=== PATIENT | male | born 1960 | race Two or more races ===

== ENCOUNTER 2019-01-14 13:17 | Outpatient (RCR) | payer MEDICARE, BC | END 2019-01-30 | disposition home or self-care (01) | LOC: WCC 13:17 | DX: T86.828 Other complications of skin graft (allograft) (autograft) (principal); S81.002A Unspecified open wound, left knee, initial encounter; T81.31XA Disruption of external operation (surgical) wound, not elsewhere classified, initial encounter; X58.XXXA Exposure to other specified factors, initial encounter; Y92.9 Unspecified place or not applicable; Z96.652 Presence of left artificial knee joint; N18.6 End stage renal disease; Z99.2 Dependence on renal dialysis; K74.60 Unspecified cirrhosis of liver; Z79.899 Other long term (current) drug therapy | CPT/HCPCS: G0277; G0463 ==

== ENCOUNTER 2019-02-09 13:00 | Outpatient (RCR) | payer MEDICARE, BC | END 2019-03-01 | disposition home or self-care (01) | LOC: WCC 13:00 | DX: T86.828 Other complications of skin graft (allograft) (autograft) (principal); L02.416 Cutaneous abscess of left lower limb; Z96.652 Presence of left artificial knee joint; N18.6 End stage renal disease; K74.60 Unspecified cirrhosis of liver; L97.823 Non-pressure chronic ulcer of other part of left lower leg with necrosis of muscle; Z79.899 Other long term (current) drug therapy | CPT/HCPCS: 10060; 11043; 87070; 87205; G0277 ==

== ENCOUNTER 2019-03-02 08:09 | Outpatient (RCR) | payer MEDICARE, BC | END 2019-04-01 | disposition home or self-care (01) | LOC: WCC 08:09 | DX: T86.828 Other complications of skin graft (allograft) (autograft) (principal); L97.823 Non-pressure chronic ulcer of other part of left lower leg with necrosis of muscle; L02.416 Cutaneous abscess of left lower limb; K74.60 Unspecified cirrhosis of liver; Z96.652 Presence of left artificial knee joint; N18.6 End stage renal disease; Z79.899 Other long term (current) drug therapy | CPT/HCPCS: G0277; G0463 ==

== ENCOUNTER 2019-04-02 08:07 | Outpatient (RCR) | payer MEDICARE, BC | END 2019-05-02 | disposition home or self-care (01) | LOC: WCC 08:07 | DX: T86.828 Other complications of skin graft (allograft) (autograft) (principal); L97.823 Non-pressure chronic ulcer of other part of left lower leg with necrosis of muscle; L02.416 Cutaneous abscess of left lower limb; N18.6 End stage renal disease; Z96.652 Presence of left artificial knee joint; K74.60 Unspecified cirrhosis of liver; Z79.899 Other long term (current) drug therapy | CPT/HCPCS: G0277; G0463 ==

== ENCOUNTER 2019-05-05 08:09 | Outpatient (RCR) | payer MEDICARE, BC | END 2019-06-01 | disposition home or self-care (01) | LOC: WCC 08:09 | DX: T86.828 Other complications of skin graft (allograft) (autograft) (principal); L97.823 Non-pressure chronic ulcer of other part of left lower leg with necrosis of muscle; L02.416 Cutaneous abscess of left lower limb; Z96.652 Presence of left artificial knee joint; N18.6 End stage renal disease; K74.60 Unspecified cirrhosis of liver; Z79.899 Other long term (current) drug therapy | CPT/HCPCS: G0277 ×4 ==